=== PATIENT | female | born 1945 | race Asian ===

== ENCOUNTER 2020-07-17 23:10 | Observation (INO) | payer MEDICARE, OTHER ==
[~2020-07-17] VITALS: Ht 160 cm; Wt 63.8 kg
[2020-07-17 23:25] VITALS: BP 133/73
--- NOTE | 2020-07-17 23:49 | NUR ---
PT DIRECTLY ADMITTED TO 125 FOR SBHU 48HR HOLD. PT CALM AND COOPERATIVE DURING ADMISSION ASSESSMENT. PT WATCHING TV W/ CALL LIGHT IN REACH WILL CONTINUE TO MONITOR.
[2020-07-18 00:10] LABS: BILIRUBIN,URINE NEG (NEG); CLARITY,URINE HAZY; COLOR,URINE YELLOW; GLUCOSE,URINE NEG (NEG)
[2020-07-18 00:11] LABS: BACTERIA,URINE FEW /HPF (0-FEW); NITRITE,URINE POS (NEG); RBC,URINE 0 /HPF (0-2); SQUAMOUS EPITHELIAL CELL,UR OCC /LPF; UROBILINOGEN,URINE 0.2 mg/dL (0.2 mg/dL)
[2020-07-18] MEDS ORDERED: LISI20TA18 PO (01:16)
[2020-07-18] MEDS ORDERED: CHOL500021 PO (01:16)
[2020-07-18] MEDS ORDERED: ERYT30GE2 TP (01:16)
[2020-07-18] MEDS ORDERED: ASPI-630 PO (01:16)
[2020-07-18] MEDS ORDERED: PRAM3TAB PO (01:16)
[2020-07-18] MEDS ORDERED: DICL100G18 TP (01:16)
[2020-07-18] MEDS ORDERED: CALC1CAP7 PO (01:16)
[2020-07-18] MEDS ORDERED: CARB1DRO20 EACHEYE (01:16)
[2020-07-18] MEDS ORDERED: RASA1TAB2 PO (01:16)
[2020-07-18] MEDS ORDERED: CARB1TAB44 PO (02:21)
[2020-07-18 06:09] LABS: BASO # 0.1 x10^3/uL (0.0-0.2); BASO % 1 % (0-3); EOS # 0.2 x10^3/uL (0.0-0.7); EOS % 4 % (0-3); HEMATOCRIT 39.6 % (36.0-47.0); HEMOGLOBIN 13.5 g/dL (12.0-15.5); LYMPH # 1.7 x10^3/uL (1.0-4.8); LYMPH % 29 % (24-48); MEAN CORPUSCULAR HEMOGLOBIN 33 pg (25-35); MEAN CORPUSCULAR HGB CONC 34 g/dL (31-37); MEAN CORPUSCULAR VOLUME 96 fL (79-100); MONO # 0.4 x10^3/uL (0.0-1.1); MONO % 7 % (0-9); NEUT # 3.6 x10^3uL (1.8-7.7); NEUT % 59 % (31-73); PLATELET COUNT 224 x10^3/uL (140-400); RED BLOOD COUNT 4.11 x10^6/uL (3.50-5.40); WHITE BLOOD COUNT 6.1 x10^3/uL (4.0-11.0)
[2020-07-18 06:23] LABS: ALBUMIN 3.6 g/dL (3.4-5.0); ALBUMIN/GLOBULIN RATIO 1.1 (1.0-1.7); CALCIUM 9.3 mg/dL (8.5-10.1); CREATININE 0.7 mg/dL (0.6-1.0); GFR 81.8; MAGNESIUM 2.3 mg/dL (1.8-2.4); POTASSIUM 4.8 mmol/L (3.5-5.1); TOTAL BILIRUBIN 0.3 mg/dL (0.2-1.0); TOTAL PROTEIN 6.8 g/dL (6.4-8.2)
[2020-07-18] MEDS ORDERED: ACETAMINOPHEN 325 MG TABLET PO ONE (11:15)
[2020-07-18 11:43] VITALS: BP 124/72
[2020-07-18 14:48] LABS: THYROID STIM HORMONE (TSH) 1.956 uIU/mL (0.358-3.740)
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
[2020-07-18 16:02] VITALS: BP 163/69
--- NOTE | 2020-07-18 17:36 | NUR ---
SHIFT NOTE Pt resting throughout day. Pt redirected throughout day as to why she is here and why she cannot go home yet. This RN spoke with on the phone and he explained that he wants her to be in a [facility] after she discharges from [facility]. All questions addressed over the phone. Home medications continued by Dr. Abarca. Will continue to monitor. CLINTON, RN
[2020-07-18] MEDS ORDERED: POLYVINYL ALCOHOL 1.4% OPHTH SOLUTION 15ML BOTTLE. OU PRN (17:45)
--- NOTE | 2020-07-18 18:41 | EKG ---
[address] [address] Test Date: 2020-07-18 Test Time: 05:11:03 Pat Name: EDYTA PICHARDO Department: Room: 125 A Gender: F Senior Planner: : [id number] Requested By: FERNANDO LEACH Order Number: [id number] Reading MD: Measurements Intervals [place] Rate: 63 P: 47 RI: 180 QRS: 34 QRSD: 74 T: 66 QT: 404 QTc: 416 Interpretive Statements SINUS RHYTHM NORMAL ECG RI6.01 No previous ECG available for comparison
[2020-07-18 19:05] VITALS: BP 158/66
[2020-07-18] MEDS ORDERED: ERYTHROMYCIN BASE TP SCH (21:00)
[2020-07-18] MEDS ORDERED: PRAMIPEXOLE 0.5 MG TABLET. PO SCH (21:00)
[2020-07-18] MEDS ORDERED: DICLOFENAC SODIUM 1% TOPICAL GEL 100GM TUBE. TP SCH (21:00)
[2020-07-18] MEDS ORDERED: ETHANOL TP SCH (21:00)
[2020-07-18] MEDS ORDERED: CARBIDOPA/LEVODOPA CR 50/200MG TABLET.SA PO SCH (21:00)
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
[2020-07-18 23:00] VITALS: BP 129/69
[2020-07-18] MEDS ORDERED: ACETAMINOPHEN 325 MG TABLET PO PRN (23:00)
[2020-07-18 23:07] LABS: THYROXINE 5.8 ug/dL (4.5-12.0)
[2020-07-19 00:06] LABS: HEMOGLOBIN A1C 6.4 % (4.8-5.6)
[2020-07-19] MEDS ORDERED: CALCIUM CARB/VIT D3 500/200 TABLET PO SCH (08:00)
[2020-07-19] MEDS ORDERED: RASAGILINE MESYLATE PO SCH (09:00)
[2020-07-19] MEDS ORDERED: CHOLECALCIFEROL (VITAMIN D3) 1,000 UNIT TABLET PO SCH (09:00)
[2020-07-19] MEDS ORDERED: ASPIRIN CHEWABLE 81 MG TABLET. PO SCH (09:00)
[2020-07-19] MEDS ORDERED: LISINOPRIL 20 MG TABLET PO SCH (09:00)
== END 2020-07-19 00:32 ==
LOC: 1 SOUTH 23:10
PROVIDERS: ADMIT Hospitalist; ATTEND Hospitalist
DX: R45.1 Restlessness and agitation (principal); Z20.822 Contact with and (suspected) exposure to COVID-19; R45.6 Violent behavior; I10 Essential (primary) hypertension; E11.9 Type 2 diabetes mellitus without complications; G20 Parkinson's disease; F02.80 Dementia in other diseases classified elsewhere, unspecified severity, without behavioral disturbance, psychotic disturbance, mood disturbance, and anxiety; G43.909 Migraine, unspecified, not intractable, without status migrainosus; N39.0 Urinary tract infection, site not specified; Z90.49 Acquired absence of other specified parts of digestive tract; Z98.891 History of uterine scar from previous surgery
CPT/HCPCS: 36415; 80053; 80061; 81001; 82306; 82607; 82947; 83036; 83540; 83550; 83735; 84436; 84439; 84443; 84480; 84481; 85025; 85379; 86592; 87086; 93005; G0378; G0379; U0003

== ENCOUNTER 2020-07-18 21:00 | Inpatient (IN) | payer MEDICARE, OTHER ==
[~2020-07-18] VITALS: Ht 165.1 cm; Wt 63.9 kg
[~2020-07-18 21:00] MED LIST: ASPI-630 PO; CALC1CAP7 PO; CARB1DRO20 EACHEYE; CARB1TAB44 PO; CHOL500021 PO; DICL100G18 TP; ERYT30GE2 TP; LISI20TA18 PO; PRAM3TAB PO; RASA1TAB2 PO
[2020-07-19] MEDS ORDERED: METHYL SALICYLATE/MENTHOL TOPICAL OINTMENT 57GM TUBE. TP PRN (01:00)
[2020-07-19] MEDS ORDERED: MAG HYDROX/AL HYDROX/SIMETH 30 ML ORAL.SUSP PO PRN (01:00)
[2020-07-19] MEDS ORDERED: ACETAMINOPHEN 325 MG TABLET PO PRN (01:00)
[2020-07-19] MEDS ORDERED: MAGNESIUM HYDROXIDE 2,400 MG/30 ML ORAL.SUSP. PO PRN (01:00)
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
[2020-07-19 01:24] VITALS: BP 130/76
[2020-07-19 06:20] VITALS: BP 131/77
[2020-07-19] MEDS: RASAGILINE MESYLATE PO SCH (09:00)
[2020-07-19] MEDS ORDERED: CHOLECALCIFEROL (VITAMIN D3) 50,000 UNIT CAPSULE PO SCH (09:00)
[2020-07-19] MEDS: CARBIDOPA/LEVODOPA CR 50/200MG TABLET.SA PO SCH ×3 (09:23→20:18)
[2020-07-19] MEDS: ASPIRIN CHEWABLE 81 MG TABLET. PO SCH (09:23)
[2020-07-19] MEDS: PRAMIPEXOLE 0.5 MG TABLET. PO SCH ×3 (09:23→20:19)
[2020-07-19] MEDS: LISINOPRIL 20 MG TABLET PO SCH (09:23)
[2020-07-19] MEDS: CALCIUM CARB/VIT D3 500/200 TABLET PO SCH ×2 (09:23→16:24)
[2020-07-19] MEDS: DICLOFENAC SODIUM 1% TOPICAL GEL 100GM TUBE. TP SCH ×4 (09:24→20:19)
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
--- NOTE | 2020-07-19 12:28 | NUR ---
Jae has [facility] Medicare Advantage insurance. Call placed to Jose Raul at [facility] ([phone]) to inform of admission and obtain authorization. Jae has been approved thru 07/22/20, next review due on 07/23/20. Authorization number is [id number]. A [facility] clinician will contact Jaskaranajit's TANGELA SWBilly, to complete review on 07/23/20.
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
--- NOTE | 2020-07-19 15:53 | NUR ---
Nurse note Patient has had an uneventful shift, med compliant, but has been withdrawn to room except for meals.
[2020-07-19 16:03] VITALS: BP 132/78
--- NOTE | 2020-07-19 22:00 | PDOC ---
Exam Note: Jesus Note: Please also refer to the separate dictated note~for this date of service dictated separately.~Patient seen individually. Discussed the patient with Nursing staff reviewed the chart.~Reviewed interim history and current functioning. Reviewed vital signs,~Labs/ Radiology~and current medications noted below. Continue current treatment with the changes noted in the dictated addendum note Assessment: Vital Signs/I&O: Vital Signs Date Time Temp Pulse Resp B/P (MAP) Pulse Ox O2 Delivery O2 Flow Rate FiO2 07/19/20 16:03 97.9 73 16 132/78 (96) 97 07/19/20 06:20 Room Air 07/19/20 01:24 96.0 Current Medications: Meds: Current Medications Medications (Trade) Dose Ordered Sig/Sunday Route PRN Reason Start Time Stop Time Status Last Admin Dose Admin Aspirin (Aspirin Chewable) 81 mg DAILY PO 07/19/20 09:00 07/19/20 09:23 Carbidopa/Levodopa (Sinemet Cr) 1 tab.sa TID PO 07/19/20 09:00 07/19/20 20:18 Diclofenac Sodium (Voltaren) 1 petra QID TP 07/19/20 09:00 07/19/20 20:19 Lisinopril (Prinivil) 20 mg DAILY PO 07/19/20 09:00 07/19/20 09:23 Calcium/Vitamin D (Oscal D 500mg/ 200uts) 1 tab BIDWMEALS PO 07/19/20 08:00 07/19/20 16:24 Pramipexole Dihydrochloride (miraPEX) 1 mg [id number] PO 07/19/20 09:00 07/19/20 20:19 I have reviewed the current psychotropics carefully including drug interactions. Risk benefit ratio favors no change other than as noted in my dictated progress note. ANTONIO ARTHUR MD Jul 19, 2020 22:00
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
--- NOTE | 2020-07-20 00:40 | NUR ---
Nursing Note: Pt thinks she has been here for 3 days, and is repeatedly asking for a comb. Thinks she brought one with her, but her closet contains only 1 change of clothes and a small amount of makeup. Wanders the unit talking to peers, difficult to understand secondary to her thick accent. Pt compliant with meds and assessments.
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
[2020-07-20 06:15] VITALS: BP 139/68
[2020-07-20] MEDS: CHOLECALCIFEROL (VITAMIN D3) 1,000 UNIT TABLET PO SCH (08:10)
[2020-07-20] MEDS: CARBIDOPA/LEVODOPA CR 50/200MG TABLET.SA PO SCH ×3 (08:10→19:48)
[2020-07-20] MEDS: ASPIRIN CHEWABLE 81 MG TABLET. PO SCH (08:11)
[2020-07-20] MEDS: LISINOPRIL 20 MG TABLET PO SCH (08:11)
[2020-07-20] MEDS: CALCIUM CARB/VIT D3 500/200 TABLET PO SCH ×2 (08:11→16:35)
[2020-07-20] MEDS: PRAMIPEXOLE 0.5 MG TABLET. PO SCH ×3 (08:11→19:48)
[2020-07-20] MEDS: DICLOFENAC SODIUM 1% TOPICAL GEL 100GM TUBE. TP SCH ×4 (08:11→19:48)
[2020-07-20] MEDS: RASAGILINE MESYLATE PO SCH (08:12)
--- NOTE | 2020-07-20 12:25 | NUR ---
ACTIVITY THERAPY ASSESSMENT completed based on notes, observation and interview. Pt ambulates with a three wheel walker. Pt was located in her room about the brush her teeth. AT introduced self and pt said that she was willing to answer questions. Pt was hyperverbal but pleasant during time of assessment. Pt talks in a quiet tone and can be hard to understand at times. AT asked pt what she likes to do and pt said she likes exercise, coloring, gardening, cooking and going to mormonism. Pt was able to recall facts and details. Pt became very hyperverbal and was hard to redirect at this time. Pt began to talk about her belongings like her ring and watch. AT explained that she will get these items when she leaves. Pt continued to talk about these items and remained hyperverbal. AT encouraged pt to come to group activities in the afternoon. Per notes pt is interacting well with peers and staff. Pt is repeatedly asking about a comb that she thinks she came with. Initial goal aimed to support socialization and engagement. Pt will participate in at least five individual or group Activity Therapy sessions per week.
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
[2020-07-20 15:58] VITALS: BP 140/64
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
--- NOTE | 2020-07-20 22:06 | PDOC ---
Exam Note: Jesus Note: Please also refer to the separate dictated note~for this date of service dictated separately.~Patient seen individually. Discussed the patient with Nursing staff reviewed the chart.~Reviewed interim history and current functioning. Reviewed vital signs,~Labs/ Radiology~and current medications noted below. Continue current treatment with the changes noted in the dictated addendum note Assessment: Vital Signs/I&O: Vital Signs Date Time Temp Pulse Resp B/P (MAP) Pulse Ox O2 Delivery O2 Flow Rate FiO2 07/20/20 15:58 97.0 83 18 140/64 (89) 96 07/19/20 06:20 Room Air 07/19/20 01:24 96.0 I & O 07/19/20 07/19/20 07/20/20 15:00 23:00 07:00 Intake Total 240 ml 480 ml Output Total 800 ml Balance 240 ml 480 ml -800 ml Labs: Laboratory Tests Test 07/20/20 07:52 07/20/20 11:59 07/20/20 17:09 Glucose (Fingerstick) 161 mg/dL (70-99) H 130 mg/dL (70-99) H 138 mg/dL (70-99) H Current Medications: Meds: Laboratory Tests Test 07/20/20 07:52 07/20/20 11:59 07/20/20 17:09 Glucose (Fingerstick) 161 mg/dL 130 mg/dL 138 mg/dL Current Medications Medications (Trade) Dose Ordered Sig/Sunday Route PRN Reason Start Time Stop Time Status Last Admin Dose Admin Acetaminophen (Tylenol) 650 mg PRN Q6HRS PRN PO MILD PAIN / TEMP > 100.3'F 07/19/20 01:00 Multi-Ingredient Ointment (Analgesic [employer]) 1 petra PRN QID PRN TP MUSCLE PAIN 07/19/20 01:00 Al Hydroxide/Mg Hydroxide (Mylanta Plus Xs) 15 ml PRN AFTMEALHC PRN PO DYSPEPSIA 07/19/20 01:00 Magnesium Hydroxide (Milk Of Magnesia) 2,400 mg PRN QHS PRN PO CONSTIPATION 07/19/20 01:00 Aspirin (Aspirin Chewable) 81 mg DAILY PO 07/19/20 09:00 07/20/20 08:11 Carbidopa/Levodopa (Sinemet Cr) 1 tab.sa TID PO 07/19/20 09:00 07/20/20 19:48 Vitamin D (Vitamin D3) 2,000 unit DAILY PO 07/19/20 09:00 07/19/20 11:57 DC Diclofenac Sodium (Voltaren) 1 petra QID TP 07/19/20 09:00 07/20/20 19:48 Lisinopril (Prinivil) 20 mg DAILY PO 07/19/20 09:00 07/20/20 08:11 Calcium/Vitamin D (Oscal D 500mg/ 200uts) 1 tab BIDWMEALS PO 07/19/20 08:00 07/20/20 16:35 Artificial Tears (Artificial Tears) 2 drop PRN Q2HR PRN OU DRY EYE 07/19/20 01:45 Pramipexole Dihydrochloride (miraPEX) 1 mg [id number] PO 07/19/20 09:00 07/20/20 19:48 Non-Formulary Medication (Rasagiline Mesylate (Azilect)) 1 tab DAILY PO 07/19/20 09:00 UNV Vitamin D (Vitamin D3) 2,000 unit DAILY PO 07/20/20 09:00 07/20/20 08:10 Duloxetine HCl (Cymbalta) 30 mg DAILY PO 07/21/20 09:00 Current Medications Medications (Trade) Dose Ordered Sig/Sunday Route PRN Reason Start Time Stop Time Status Last Admin Dose Admin Vitamin D (Vitamin D3) 2,000 unit DAILY PO 07/20/20 09:00 07/20/20 08:10 I have reviewed the current psychotropics carefully including drug interactions. Risk benefit ratio favors no change other than as noted in my dictated progress note. Diagnosis: Problems: (1) Major depressive disorder with psychotic features (2) Major neurocognitive disorder (3) Dementia in Alzheimer's disease with delusions (4) Dementia in Alzheimer's disease with depression (5) Dementia, vascular, with depression (6) Dementia, vascular, with delusions (7) Anxiety disorder, unspecified (8) Impulse control disorder, unspecified ANTONIO ARTHUR MD Jul 20, 2020 22:06
--- NOTE | 2020-07-20 22:35 | NUR ---
Nursing note Pt complains about not getting her shower when she wanted it, peers entering her room, taking her makeup etc. Pt more talkative this pm, Sami is interwoven with Lao, at times is difficult to understand. Voltaren gel applied to LE bilat. Leg bag to right calf with yellow urine, clear.
[2020-07-21 06:11] VITALS: BP 150/83
--- NOTE | 2020-07-21 06:38 | PDOC ---
Exam Note: Jesus Note: This note is a late entry for 07/20/2020 covers elements not covered in my initial note. Subjective: The patient was seen individually in the evening of 07/20/2020 with Chace WINKLER, discussed and reviewed the chart. She slept 5-1/2 hours previous night. The patient has been withdrawn, anxious, depressed. I met with her at length in her room. She is talking and quite hyperverbal about situation at home blaming her . I am unable to follow her partly because of her accent and secondarily because of some ongoing pressure of speech. Review of Systems: Ambulation impaired with walker. No CV, , pulmonary, eye, ENT system symptoms on review. Mental Status Exam: The patient is oriented to herself and situation. Speech is rapid, coherent, other than above. Abstraction fair. Computation impaired. Language function intact. Mood and affect remains depressed, anxious, somewhat suspicious. Laboratory Data: Reviewed. Impression: Major depressive disorder with psychotic features. Major neurocognitive disorder Alzheimer vascular with delusion, depression. Anxiety disorder unspecified. Impulse control disorder unspecified. Plan: We will go ahead and start Cymbalta 30 mg a day for her mood symptoms. Continue rest unchanged. Adjust further as clinically indicated. Assessment: Vital Signs/I&O: Vital Signs Date Time Temp Pulse Resp B/P (MAP) Pulse Ox O2 Delivery O2 Flow Rate FiO2 07/21/20 06:11 98.0 68 18 150/83 (105) 97 Room Air 07/19/20 01:24 96.0 I & O 07/20/20 07/20/20 07/21/20 15:00 23:00 07:00 Intake Total 600 ml 240 ml Balance 600 ml 240 ml Labs: Laboratory Tests Test 07/20/20 07:52 07/20/20 11:59 07/20/20 17:09 Glucose (Fingerstick) 161 mg/dL (70-99) H 130 mg/dL (70-99) H 138 mg/dL (70-99) H Current Medications: Meds: Laboratory Tests Test 07/20/20 07:52 07/20/20 11:59 07/20/20 17:09 Glucose (Fingerstick) 161 mg/dL 130 mg/dL 138 mg/dL Current Medications Medications (Trade) Dose Ordered Sig/Sunday Route PRN Reason Start Time Stop Time Status Last Admin Dose Admin Acetaminophen (Tylenol) 650 mg PRN Q6HRS PRN PO MILD PAIN / TEMP > 100.3'F 07/19/20 01:00 Multi-Ingredient Ointment (Analgesic [place]) 1 petra PRN QID PRN TP MUSCLE PAIN 07/19/20 01:00 Al Hydroxide/Mg Hydroxide (Mylanta Plus Xs) 15 ml PRN AFTMEALHC PRN PO DYSPEPSIA 07/19/20 01:00 Magnesium Hydroxide (Milk Of Magnesia) 2,400 mg PRN QHS PRN PO CONSTIPATION 07/19/20 01:00 Aspirin (Aspirin Chewable) 81 mg DAILY PO 07/19/20 09:00 07/20/20 08:11 Carbidopa/Levodopa (Sinemet Cr) 1 tab.sa TID PO 07/19/20 09:00 07/20/20 19:48 Vitamin D (Vitamin D3) 2,000 unit DAILY PO 07/19/20 09:00 07/19/20 11:57 DC Diclofenac Sodium (Voltaren) 1 petra QID TP 07/19/20 09:00 07/20/20 19:48 Lisinopril (Prinivil) 20 mg DAILY PO 07/19/20 09:00 07/20/20 08:11 Calcium/Vitamin D (Oscal D 500mg/ 200uts) 1 tab BIDWMEALS PO 07/19/20 08:00 07/20/20 16:35 Artificial Tears (Artificial Tears) 2 drop PRN Q2HR PRN OU DRY EYE 07/19/20 01:45 Pramipexole Dihydrochloride (miraPEX) 1 mg [id number] PO 07/19/20 09:00 07/20/20 19:48 Non-Formulary Medication (Rasagiline Mesylate (Azilect)) 1 tab DAILY PO 07/19/20 09:00 UNV Vitamin D (Vitamin D3) 2,000 unit DAILY PO 07/20/20 09:00 07/20/20 08:10 Duloxetine HCl (Cymbalta) 30 mg DAILY PO 07/21/20 09:00 Current Medications Medications (Trade) Dose Ordered Sig/Sunday Route PRN Reason Start Time Stop Time Status Last Admin Dose Admin Vitamin D (Vitamin D3) 2,000 unit DAILY PO 07/20/20 09:00 07/20/20 08:10 I have reviewed the current psychotropics carefully including drug interactions. Risk benefit ratio favors no change other than as noted in my dictated progress note. Diagnosis: Problems: (1) Impulse control disorder, unspecified (2) Anxiety disorder, unspecified (3) Dementia, vascular, with depression (4) Dementia, vascular, with delusions (5) Dementia in Alzheimer's disease with depression (6) Dementia in Alzheimer's disease with delusions (7) Major neurocognitive disorder (8) Major depressive disorder with psychotic features ANTONIO ARTHUR MD Jul 21, 2020 06:38
[2020-07-21] MEDS: CALCIUM CARB/VIT D3 500/200 TABLET PO SCH ×2 (08:00→16:10)
[2020-07-21] MEDS: CHOLECALCIFEROL (VITAMIN D3) 1,000 UNIT TABLET PO SCH (08:35)
[2020-07-21] MEDS: LISINOPRIL 20 MG TABLET PO SCH (08:35)
[2020-07-21] MEDS: DULoxetine HCL 30 MG CAPSULE.DR PO SCH (08:36)
[2020-07-21] MEDS: PRAMIPEXOLE 0.5 MG TABLET. PO SCH ×3 (08:36→18:29)
[2020-07-21] MEDS: ASPIRIN CHEWABLE 81 MG TABLET. PO SCH (08:36)
[2020-07-21] MEDS: CARBIDOPA/LEVODOPA CR 50/200MG TABLET.SA PO SCH ×3 (08:36→18:29)
[2020-07-21] MEDS: DICLOFENAC SODIUM 1% TOPICAL GEL 100GM TUBE. TP SCH ×4 (08:52→18:29)
[2020-07-21] MEDS: RASAGILINE MESYLATE PO SCH (08:52)
[2020-07-21 15:55] VITALS: BP 158/81
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
--- NOTE | 2020-07-21 22:00 | PDOC ---
Exam Note: Jesus Note: Please also refer to the separate dictated note~for this date of service dictated separately.~Patient seen individually. Discussed the patient with Nursing staff reviewed the chart.~Reviewed interim history and current functioning. Reviewed vital signs,~Labs/ Radiology~and current medications noted below. Continue current treatment with the changes noted in the dictated addendum note Assessment: Vital Signs/I&O: Vital Signs Date Time Temp Pulse Resp B/P (MAP) Pulse Ox O2 Delivery O2 Flow Rate FiO2 07/21/20 15:55 97.1 65 16 158/81 (106) 97 07/21/20 06:11 Room Air 07/19/20 01:24 96.0 I & O 07/20/20 07/20/20 07/21/20 15:00 23:00 07:00 Intake Total 600 ml 240 ml Balance 600 ml 240 ml Labs: Laboratory Tests Test 07/21/20 11:32 07/21/20 16:18 07/21/20 19:42 Glucose (Fingerstick) 145 mg/dL (70-99) H 156 mg/dL (70-99) H 176 mg/dL (70-99) H Current Medications: Meds: Laboratory Tests Test 07/21/20 11:32 07/21/20 16:18 07/21/20 19:42 Glucose (Fingerstick) 145 mg/dL 156 mg/dL 176 mg/dL Current Medications Medications (Trade) Dose Ordered Sig/Sunday Route PRN Reason Start Time Stop Time Status Last Admin Dose Admin Acetaminophen (Tylenol) 650 mg PRN Q6HRS PRN PO MILD PAIN / TEMP > 100.3'F 07/19/20 01:00 Multi-Ingredient Ointment (Analgesic [place]) 1 petra PRN QID PRN TP MUSCLE PAIN 07/19/20 01:00 Al Hydroxide/Mg Hydroxide (Mylanta Plus Xs) 15 ml PRN AFTMEALHC PRN PO DYSPEPSIA 07/19/20 01:00 Magnesium Hydroxide (Milk Of Magnesia) 2,400 mg PRN QHS PRN PO CONSTIPATION 07/19/20 01:00 Aspirin (Aspirin Chewable) 81 mg DAILY PO 07/19/20 09:00 07/21/20 08:36 Carbidopa/Levodopa (Sinemet Cr) 1 tab.sa TID PO 07/19/20 09:00 07/21/20 18:29 Vitamin D (Vitamin D3) 2,000 unit DAILY PO 07/19/20 09:00 07/19/20 11:57 DC Diclofenac Sodium (Voltaren) 1 petra QID TP 07/19/20 09:00 07/21/20 18:29 Lisinopril (Prinivil) 20 mg DAILY PO 07/19/20 09:00 07/21/20 08:35 Calcium/Vitamin D (Oscal D 500mg/ 200uts) 1 tab BIDWMEALS PO 07/19/20 08:00 07/21/20 16:10 Artificial Tears (Artificial Tears) 2 drop PRN Q2HR PRN OU DRY EYE 07/19/20 01:45 Pramipexole Dihydrochloride (miraPEX) 1 mg [id number] PO 07/19/20 09:00 07/21/20 18:29 Non-Formulary Medication (Rasagiline Mesylate (Azilect)) 1 tab DAILY PO 07/19/20 09:00 UNV Vitamin D (Vitamin D3) 2,000 unit DAILY PO 07/20/20 09:00 07/21/20 08:35 Duloxetine HCl (Cymbalta) 30 mg DAILY PO 07/21/20 09:00 07/21/20 08:36 Current Medications Medications (Trade) Dose Ordered Sig/Sunday Route PRN Reason Start Time Stop Time Status Last Admin Dose Admin Duloxetine HCl (Cymbalta) 30 mg DAILY PO 07/21/20 09:00 07/21/20 08:36 I have reviewed the current psychotropics carefully including drug interactions. Risk benefit ratio favors no change other than as noted in my dictated progress note. Diagnosis: Problems: (1) Impulse control disorder, unspecified (2) Anxiety disorder, unspecified (3) Dementia, vascular, with depression (4) Dementia, vascular, with delusions (5) Dementia in Alzheimer's disease with depression (6) Dementia in Alzheimer's disease with delusions (7) Major neurocognitive disorder (8) Major depressive disorder with psychotic features ANTONIO ARTHUR MD Jul 21, 2020 22:00
--- NOTE | 2020-07-22 05:29 | NUR ---
Pt struggles with communication in [place]. Her words are quiet and sometimes garbled. Suprapubic dressing changed this AM with slit gauze and tape. No signs of infection. Pt denies pain.
[2020-07-22 06:22] VITALS: BP 140/67
[2020-07-22] MEDS: PRAMIPEXOLE 0.5 MG TABLET. PO SCH ×3 (08:36→20:59)
[2020-07-22] MEDS: CALCIUM CARB/VIT D3 500/200 TABLET PO SCH ×2 (08:36→17:44)
[2020-07-22] MEDS: CARBIDOPA/LEVODOPA CR 50/200MG TABLET.SA PO SCH ×3 (08:36→20:59)
[2020-07-22] MEDS: DULoxetine HCL 30 MG CAPSULE.DR PO SCH (08:37)
[2020-07-22] MEDS: LISINOPRIL 20 MG TABLET PO SCH (08:37)
[2020-07-22] MEDS: ASPIRIN CHEWABLE 81 MG TABLET. PO SCH (08:37)
[2020-07-22] MEDS: CHOLECALCIFEROL (VITAMIN D3) 1,000 UNIT TABLET PO SCH (08:37)
[2020-07-22] MEDS: RASAGILINE MESYLATE PO SCH (09:00)
[2020-07-22] MEDS: DICLOFENAC SODIUM 1% TOPICAL GEL 100GM TUBE. TP SCH ×4 (09:00→21:00)
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
--- NOTE | 2020-07-22 15:23 | NUR ---
Nursing note: Client alert and oriented does have some confusion and a heavy accent at times it is difficult to understand patient. She was in dinning room for morning medications & assessment, took medication whole. She denies pain at this time. Reported that her catheter site can itch at time, denies any itching this shift. Client walks occasionally through joyce between day room, bedroom and dinning room. Continue with treatment plan. Client currently in her bedroom, will continue to monitor.
[2020-07-22 16:08] VITALS: BP 142/57
--- NOTE | 2020-07-22 22:09 | PDOC ---
Exam Note: Jesus Note: Please also refer to the separate dictated note~for this date of service dictated separately.~Patient seen individually. Discussed the patient with Nursing staff reviewed the chart.~Reviewed interim history and current functioning. Reviewed vital signs,~Labs/ Radiology~and current medications noted below. Continue current treatment with the changes noted in the dictated addendum note Assessment: Vital Signs/I&O: Vital Signs Date Time Temp Pulse Resp B/P (MAP) Pulse Ox O2 Delivery O2 Flow Rate FiO2 07/22/20 16:08 97.7 74 16 142/57 (85) 96 07/22/20 06:22 Room Air 07/19/20 01:24 96.0 I & O 07/21/20 07/21/20 07/22/20 15:00 23:00 07:00 Intake Total 480 ml 360 ml Output Total 450 ml Balance 480 ml -90 ml Labs: Laboratory Tests Test 07/22/20 07:31 07/22/20 11:28 07/22/20 16:44 07/22/20 19:05 Glucose (Fingerstick) 147 mg/dL (70-99) H 162 mg/dL (70-99) H 177 mg/dL (70-99) H 232 mg/dL (70-99) H Current Medications: Meds: Laboratory Tests Test 07/22/20 07:31 07/22/20 11:28 07/22/20 16:44 07/22/20 19:05 Glucose (Fingerstick) 147 mg/dL 162 mg/dL 177 mg/dL 232 mg/dL Current Medications Medications (Trade) Dose Ordered Sig/Sunday Route PRN Reason Start Time Stop Time Status Last Admin Dose Admin Acetaminophen (Tylenol) 650 mg PRN Q6HRS PRN PO MILD PAIN / TEMP > 100.3'F 07/19/20 01:00 Multi-Ingredient Ointment (Analgesic [place]) 1 petra PRN QID PRN TP MUSCLE PAIN 07/19/20 01:00 Al Hydroxide/Mg Hydroxide (Mylanta Plus Xs) 15 ml PRN AFTMEALHC PRN PO DYSPEPSIA 07/19/20 01:00 07/22/20 21:43 Magnesium Hydroxide (Milk Of Magnesia) 2,400 mg PRN QHS PRN PO CONSTIPATION 07/19/20 01:00 Aspirin (Aspirin Chewable) 81 mg DAILY PO 07/19/20 09:00 07/22/20 08:37 Carbidopa/Levodopa (Sinemet Cr) 1 tab.sa TID PO 07/19/20 09:00 07/22/20 20:59 Vitamin D (Vitamin D3) 2,000 unit DAILY PO 07/19/20 09:00 07/19/20 11:57 DC Diclofenac Sodium (Voltaren) 1 petra QID TP 07/19/20 09:00 07/22/20 21:00 Lisinopril (Prinivil) 20 mg DAILY PO 07/19/20 09:00 07/22/20 08:37 Calcium/Vitamin D (Oscal D 500mg/ 200uts) 1 tab BIDWMEALS PO 07/19/20 08:00 07/22/20 17:44 Artificial Tears (Artificial Tears) 2 drop PRN Q2HR PRN OU DRY EYE 07/19/20 01:45 Pramipexole Dihydrochloride (miraPEX) 1 mg [id number] PO 07/19/20 09:00 07/22/20 20:59 Non-Formulary Medication (Rasagiline Mesylate (Azilect)) 1 tab DAILY PO 07/19/20 09:00 UNV Vitamin D (Vitamin D3) 2,000 unit DAILY PO 07/20/20 09:00 07/22/20 08:37 Duloxetine HCl (Cymbalta) 30 mg DAILY PO 07/21/20 09:00 07/22/20 08:37 I have reviewed the current psychotropics carefully including drug interactions. Risk benefit ratio favors no change other than as noted in my dictated progress note. Diagnosis: Problems: (1) Impulse control disorder, unspecified (2) Anxiety disorder, unspecified (3) Dementia, vascular, with depression (4) Dementia, vascular, with delusions (5) Dementia in Alzheimer's disease with depression (6) Dementia in Alzheimer's disease with delusions (7) Major neurocognitive disorder (8) Major depressive disorder with psychotic features ANTONIO ARTHUR MD Jul 22, 2020 22:09
--- NOTE | 2020-07-22 23:39 | NUR ---
Patient is located in her room for assessments and medications. She is pleasant, confused. Difficult to understand at times due to accent. Compliant with assessments and medications whole. No agitation. Patient requested PRN for abdominal discomfort. Mylanta given at 2200, with good effect. She appears to be sleeping comfortably at present time. Will continue to monitor.
[2020-07-23 05:58] VITALS: BP 131/78
[2020-07-23] MEDS: ASPIRIN CHEWABLE 81 MG TABLET. PO SCH (08:41)
[2020-07-23] MEDS: CARBIDOPA/LEVODOPA CR 50/200MG TABLET.SA PO SCH ×3 (08:41→20:33)
[2020-07-23] MEDS: DICLOFENAC SODIUM 1% TOPICAL GEL 100GM TUBE. TP SCH ×4 (08:41→20:34)
[2020-07-23] MEDS: CALCIUM CARB/VIT D3 500/200 TABLET PO SCH ×2 (08:42→17:19)
[2020-07-23] MEDS: LISINOPRIL 20 MG TABLET PO SCH (08:42)
[2020-07-23] MEDS: PRAMIPEXOLE 0.5 MG TABLET. PO SCH ×3 (08:42→20:33)
[2020-07-23] MEDS: DULoxetine HCL 30 MG CAPSULE.DR PO SCH (08:42)
[2020-07-23] MEDS: CHOLECALCIFEROL (VITAMIN D3) 1,000 UNIT TABLET PO SCH (08:42)
[2020-07-23] MEDS: RASAGILINE MESYLATE PO SCH (08:47)
--- NOTE | 2020-07-23 09:35 | PDOC ---
Exam Note: Jesus Note: This note is a late entry for 07/22/2020 covers elements not covered in my initial note. Subjective: The patient was seen individually in the evening of 07/22/2020 with Megan WINKLER, discussed and reviewed the chart. She slept 7 hours previous night. I met with the patient in her room. She is compliant with medications. She remains withdrawn, difficult to understand at times due to her accent which is fairly thick [place]isian[place]. Review of Systems: Ambulation impaired with walker. No CV, , pulmonary, eye, ENT system symptoms on review. Mental Status Exam: The patient is oriented to herself and situation. Speech is coherent, rapid at times, less pressured. Abstraction fair. Computation impaired. Language function intact. Mood and affect lability improved, less depressed. No suicidal ideation. Laboratory Data: Reviewed. Impression: Major depressive disorder with psychotic features. Major neurocognitive disorder Alzheimer vascular with delusion, depression. Anxiety disorder unspecified. Impulse control disorder unspecified. Plan: Continue current psychotropics. Make further adjustments clinically indicated. We will request social service staff to have a marital session with the patient and her to assess functioning at home and aid in planning for disposition plans. Assessment: Vital Signs/I&O: Vital Signs Date Time Temp Pulse Resp B/P (MAP) Pulse Ox O2 Delivery O2 Flow Rate FiO2 07/23/20 08:42 62 131/78 07/23/20 05:58 97.6 16 99 Room Air 07/19/20 01:24 96.0 I & O 07/22/20 07/22/20 07/23/20 15:00 23:00 07:00 Intake Total 840 ml 240 ml Balance 840 ml 240 ml Labs: Laboratory Tests Test 07/22/20 11:28 07/22/20 16:44 07/22/20 19:05 07/23/20 07:21 Glucose (Fingerstick) 162 mg/dL (70-99) H 177 mg/dL (70-99) H 232 mg/dL (70-99) H 194 mg/dL (70-99) H Current Medications: Meds: Laboratory Tests Test 07/22/20 11:28 07/22/20 16:44 07/22/20 19:05 07/23/20 07:21 Glucose (Fingerstick) 162 mg/dL 177 mg/dL 232 mg/dL 194 mg/dL Current Medications Medications (Trade) Dose Ordered Sig/Sunday Route PRN Reason Start Time Stop Time Status Last Admin Dose Admin Acetaminophen (Tylenol) 650 mg PRN Q6HRS PRN PO MILD PAIN / TEMP > 100.3'F 07/19/20 01:00 Multi-Ingredient Ointment (Analgesic [place]) 1 petra PRN QID PRN TP MUSCLE PAIN 07/19/20 01:00 Al Hydroxide/Mg Hydroxide (Mylanta Plus Xs) 15 ml PRN AFTMEALHC PRN PO DYSPEPSIA 07/19/20 01:00 07/22/20 21:43 Magnesium Hydroxide (Milk Of Magnesia) 2,400 mg PRN QHS PRN PO CONSTIPATION 07/19/20 01:00 Aspirin (Aspirin Chewable) 81 mg DAILY PO 07/19/20 09:00 07/23/20 08:41 Carbidopa/Levodopa (Sinemet Cr) 1 tab.sa TID PO 07/19/20 09:00 07/23/20 08:41 Vitamin D (Vitamin D3) 2,000 unit DAILY PO 07/19/20 09:00 07/19/20 11:57 DC Diclofenac Sodium (Voltaren) 1 petra QID TP 07/19/20 09:00 07/23/20 08:41 Lisinopril (Prinivil) 20 mg DAILY PO 07/19/20 09:00 07/23/20 08:42 Calcium/Vitamin D (Oscal D 500mg/ 200uts) 1 tab BIDWMEALS PO 07/19/20 08:00 07/23/20 08:42 Artificial Tears (Artificial Tears) 2 drop PRN Q2HR PRN OU DRY EYE 07/19/20 01:45 Pramipexole Dihydrochloride (miraPEX) 1 mg [id number] PO 07/19/20 09:00 07/23/20 08:42 Non-Formulary Medication (Rasagiline Mesylate (Azilect)) 1 tab DAILY PO 07/19/20 09:00 UNV Vitamin D (Vitamin D3) 2,000 unit DAILY PO 07/20/20 09:00 07/23/20 08:42 Duloxetine HCl (Cymbalta) 30 mg DAILY PO 07/21/20 09:00 07/23/20 08:42 I have reviewed the current psychotropics carefully including drug interactions. Risk benefit ratio favors no change other than as noted in my dictated progress note. Diagnosis: Problems: (1) Impulse control disorder, unspecified (2) Anxiety disorder, unspecified (3) Dementia, vascular, with depression (4) Dementia, vascular, with delusions (5) Dementia in Alzheimer's disease with depression (6) Dementia in Alzheimer's disease with delusions (7) Major neurocognitive disorder (8) Major depressive disorder with psychotic features ANTONIO ARTHUR MD Jul 23, 2020 09:35
--- NOTE | 2020-07-23 10:55 | NUR ---
Nursing note: Client alert and oriented does have some confusion and a heavy accent at times it is difficult to understand patient. She was in dinning room for morning medications & assessment, took medication whole. She reports right side pain, unable to verbalize pain level on a scale of 1-10. Reported that her catheter site can itch at time, denies any itching this shift. Client walks occasionally through joyce between day room, bedroom and dinning room. Client currently in day room. Will continue to monitor.
--- NOTE | 2020-07-23 14:23 | NUR ---
SW completed [employer] updates on pt via voicemail and am waiting to hear back re: whether or not pt is going to be approved.
[2020-07-23 16:11] VITALS: BP 155/61
--- NOTE | 2020-07-23 22:06 | PDOC ---
Exam Note: Jesus Note: Please also refer to the separate dictated note~for this date of service dictated separately.~Patient seen individually. Discussed the patient with Nursing staff reviewed the chart.~Reviewed interim history and current functioning. Reviewed vital signs,~Labs/ Radiology~and current medications noted below. Continue current treatment with the changes noted in the dictated addendum note Assessment: Vital Signs/I&O: Vital Signs Date Time Temp Pulse Resp B/P (MAP) Pulse Ox O2 Delivery O2 Flow Rate FiO2 07/23/20 16:11 97.4 74 18 155/61 (92) 98 07/23/20 05:58 Room Air 07/19/20 01:24 96.0 I & O 07/22/20 07/22/20 07/23/20 15:00 23:00 07:00 Intake Total 840 ml 240 ml Balance 840 ml 240 ml Labs: Laboratory Tests Test 07/23/20 07:21 07/23/20 11:30 07/23/20 16:34 07/23/20 19:29 Glucose (Fingerstick) 194 mg/dL (70-99) H 118 mg/dL (70-99) H 180 mg/dL (70-99) H 194 mg/dL (70-99) H Current Medications: Meds: Laboratory Tests Test 07/23/20 07:21 07/23/20 11:30 07/23/20 16:34 07/23/20 19:29 Glucose (Fingerstick) 194 mg/dL 118 mg/dL 180 mg/dL 194 mg/dL Current Medications Medications (Trade) Dose Ordered Sig/Sunday Route PRN Reason Start Time Stop Time Status Last Admin Dose Admin Acetaminophen (Tylenol) 650 mg PRN Q6HRS PRN PO MILD PAIN / TEMP > 100.3'F 07/19/20 01:00 Multi-Ingredient Ointment (Analgesic [place]) 1 petra PRN QID PRN TP MUSCLE PAIN 07/19/20 01:00 Al Hydroxide/Mg Hydroxide (Mylanta Plus Xs) 15 ml PRN AFTMEALHC PRN PO DYSPEPSIA 07/19/20 01:00 07/22/20 21:43 Magnesium Hydroxide (Milk Of Magnesia) 2,400 mg PRN QHS PRN PO CONSTIPATION 07/19/20 01:00 Aspirin (Aspirin Chewable) 81 mg DAILY PO 07/19/20 09:00 07/23/20 08:41 Carbidopa/Levodopa (Sinemet Cr) 1 tab.sa TID PO 07/19/20 09:00 07/23/20 20:33 Vitamin D (Vitamin D3) 2,000 unit DAILY PO 07/19/20 09:00 07/19/20 11:57 DC Diclofenac Sodium (Voltaren) 1 petra QID TP 07/19/20 09:00 07/23/20 20:34 Lisinopril (Prinivil) 20 mg DAILY PO 07/19/20 09:00 07/23/20 08:42 Calcium/Vitamin D (Oscal D 500mg/ 200uts) 1 tab BIDWMEALS PO 07/19/20 08:00 07/23/20 17:19 Artificial Tears (Artificial Tears) 2 drop PRN Q2HR PRN OU DRY EYE 07/19/20 01:45 Pramipexole Dihydrochloride (miraPEX) 1 mg [id number] PO 07/19/20 09:00 07/23/20 20:33 Non-Formulary Medication (Rasagiline Mesylate (Azilect)) 1 tab DAILY PO 07/19/20 09:00 UNV Vitamin D (Vitamin D3) 2,000 unit DAILY PO 07/20/20 09:00 07/23/20 08:42 Duloxetine HCl (Cymbalta) 30 mg DAILY PO 07/21/20 09:00 07/26/20 21:00 07/23/20 08:42 Duloxetine HCl (Cymbalta) 60 mg DAILY PO 07/27/20 09:00 I have reviewed the current psychotropics carefully including drug interactions. Risk benefit ratio favors no change other than as noted in my dictated progress note. Diagnosis: Problems: (1) Impulse control disorder, unspecified (2) Anxiety disorder, unspecified (3) Dementia, vascular, with depression (4) Dementia, vascular, with delusions (5) Dementia in Alzheimer's disease with depression (6) Dementia in Alzheimer's disease with delusions (7) Major neurocognitive disorder (8) Major depressive disorder with psychotic features ANTONIO ARTHUR MD Jul 23, 2020 22:06
--- NOTE | 2020-07-23 23:34 | NUR ---
Patient was calm, cooperative and compliant with medications. She takes medications whole and without difficulty. Patient was initially in her bed laying down but was then noted to be in day room watching television later in the evening. Patient ambulates with a walker. Patient has an accent and is difficult to understand at times but is able to make her needs known. No adverse behaviors noted this shift.
[2020-07-24 06:24] VITALS: BP 149/78
[2020-07-24] MEDS: CALCIUM CARB/VIT D3 500/200 TABLET PO SCH ×2 (08:06→17:26)
[2020-07-24] MEDS: CHOLECALCIFEROL (VITAMIN D3) 1,000 UNIT TABLET PO SCH (08:06)
[2020-07-24] MEDS: CARBIDOPA/LEVODOPA CR 50/200MG TABLET.SA PO SCH ×3 (08:06→20:33)
[2020-07-24] MEDS: ASPIRIN CHEWABLE 81 MG TABLET. PO SCH (08:06)
[2020-07-24] MEDS: PRAMIPEXOLE 0.5 MG TABLET. PO SCH ×3 (08:06→20:33)
[2020-07-24] MEDS: LISINOPRIL 20 MG TABLET PO SCH (08:06)
[2020-07-24] MEDS: DULoxetine HCL 30 MG CAPSULE.DR PO SCH (08:06)
[2020-07-24] MEDS: DICLOFENAC SODIUM 1% TOPICAL GEL 100GM TUBE. TP SCH ×4 (08:07→20:34)
[2020-07-24] MEDS: RASAGILINE MESYLATE PO SCH (08:07)
--- NOTE | 2020-07-24 09:14 | PDOC ---
Exam Note: Jesus Note: This note is a late entry for 07/23/2020 covers elements not covered in my initial note. Subjective: The patient was seen individually in the evening of 07/23/2020 with Megan WINKLER, discussed and reviewed the chart. She slept 4-1/2 hours previous night. The patient has been somewhat withdrawn. She had some interaction with her but social service staff will address this to help with some marital conflicts they have had. Review of Systems: Ambulation impaired with walker. No CV, , pulmonary, eye, ENT system symptoms on review. Mental Status Exam: The patient is oriented to herself and situation. Speech is coherent, rapid at times. Abstraction fair. Computation impaired. Language function intact. Attention span short. Mood and affect somewhat withdrawn. Laboratory Data: Reviewed. Impression: Major depressive disorder with psychotic features. Major neurocognitive disorder Alzheimer vascular with delusion, depression. Anxiety disorder unspecified. Impulse control disorder unspecified. Plan: Continue current psychotropics. Increase Cymbalta from 30 mg a day to 50 mg a day. Rest unchanged for now. Assessment: Vital Signs/I&O: Vital Signs Date Time Temp Pulse Resp B/P (MAP) Pulse Ox O2 Delivery O2 Flow Rate FiO2 07/24/20 08:06 64 149/78 07/24/20 06:24 96.9 20 99 Room Air 07/19/20 01:24 96.0 I & O 07/23/20 07/23/20 07/24/20 15:00 23:00 07:00 Intake Total 720 ml 360 ml Balance 720 ml 360 ml Labs: Laboratory Tests Test 07/23/20 11:30 07/23/20 16:34 07/23/20 19:29 07/24/20 07:31 Glucose (Fingerstick) 118 mg/dL (70-99) H 180 mg/dL (70-99) H 194 mg/dL (70-99) H 158 mg/dL (70-99) H Current Medications: Meds: Laboratory Tests Test 07/23/20 11:30 07/23/20 16:34 07/23/20 19:29 07/24/20 07:31 Glucose (Fingerstick) 118 mg/dL 180 mg/dL 194 mg/dL 158 mg/dL Current Medications Medications (Trade) Dose Ordered Sig/Sunday Route PRN Reason Start Time Stop Time Status Last Admin Dose Admin Acetaminophen (Tylenol) 650 mg PRN Q6HRS PRN PO MILD PAIN / TEMP > 100.3'F 07/19/20 01:00 Multi-Ingredient Ointment (Analgesic [place]) 1 petra PRN QID PRN TP MUSCLE PAIN 07/19/20 01:00 Al Hydroxide/Mg Hydroxide (Mylanta Plus Xs) 15 ml PRN AFTMEALHC PRN PO DYSPEPSIA 07/19/20 01:00 07/22/20 21:43 Magnesium Hydroxide (Milk Of Magnesia) 2,400 mg PRN QHS PRN PO CONSTIPATION 07/19/20 01:00 Aspirin (Aspirin Chewable) 81 mg DAILY PO 07/19/20 09:00 07/24/20 08:06 Carbidopa/Levodopa (Sinemet Cr) 1 tab.sa TID PO 07/19/20 09:00 07/24/20 08:06 Vitamin D (Vitamin D3) 2,000 unit DAILY PO 07/19/20 09:00 07/19/20 11:57 DC Diclofenac Sodium (Voltaren) 1 petra QID TP 07/19/20 09:00 07/24/20 08:07 Lisinopril (Prinivil) 20 mg DAILY PO 07/19/20 09:00 07/24/20 08:06 Calcium/Vitamin D (Oscal D 500mg/ 200uts) 1 tab BIDWMEALS PO 07/19/20 08:00 07/24/20 08:06 Artificial Tears (Artificial Tears) 2 drop PRN Q2HR PRN OU DRY EYE 07/19/20 01:45 Pramipexole Dihydrochloride (miraPEX) 1 mg [id number] PO 07/19/20 09:00 07/24/20 08:06 Non-Formulary Medication (Rasagiline Mesylate (Azilect)) 1 tab DAILY PO 07/19/20 09:00 UNV Vitamin D (Vitamin D3) 2,000 unit DAILY PO 07/20/20 09:00 07/24/20 08:06 Duloxetine HCl (Cymbalta) 30 mg DAILY PO 07/21/20 09:00 07/26/20 21:00 07/24/20 08:06 Duloxetine HCl (Cymbalta) 60 mg DAILY PO 07/27/20 09:00 I have reviewed the current psychotropics carefully including drug interactions. Risk benefit ratio favors no change other than as noted in my dictated progress note. Diagnosis: Problems: (1) Impulse control disorder, unspecified (2) Anxiety disorder, unspecified (3) Dementia, vascular, with depression (4) Dementia, vascular, with delusions (5) Dementia in Alzheimer's disease with depression (6) Dementia in Alzheimer's disease with delusions (7) Major neurocognitive disorder (8) Major depressive disorder with psychotic features ANTONIO ARTHUR MD Jul 24, 2020 09:14
[2020-07-24 16:04] VITALS: BP 137/82
--- NOTE | 2020-07-24 18:14 | NUR ---
Pt alert and oriented no behaviors to report patient vitals wnl of baseline med compliant and cooperative with cares, good appetite in the dining room for all meals social with other patients and staff members, patient spoke with today and a visit is scheduled. Patient erma neckalace was given to Yaneth the mitigation supervisor and put into the safe. Dr Abarca and Dr Santiago rounded on patient no new orders vitals stable and wnl of baseline, will continue to monitor patient.
[2020-07-24] MEDS: POLYVINYL ALCOHOL 1.4% OPHTH SOLUTION 15ML BOTTLE. OU PRN (20:46)
--- NOTE | 2020-07-24 22:21 | NUR ---
Patient was in the day room watching tv with peers. Calm and cooperative with staff, compliant with meds. Patient requested PRN eye drops for dry eyes. Patient is quiet and withdrawn most of the time.
--- NOTE | 2020-07-24 22:22 | PDOC ---
Exam Note: Jesus Note: Please also refer to the separate dictated note~for this date of service dictated separately.~Patient seen individually. Discussed the patient with Nursing staff reviewed the chart.~Reviewed interim history and current functioning. Reviewed vital signs,~Labs/ Radiology~and current medications noted below. Continue current treatment with the changes noted in the dictated addendum note Assessment: Vital Signs/I&O: Vital Signs Date Time Temp Pulse Resp B/P (MAP) Pulse Ox O2 Delivery O2 Flow Rate FiO2 07/24/20 16:04 97.5 64 18 137/82 (100) 99 07/24/20 06:24 Room Air 07/19/20 01:24 96.0 I & O 07/23/20 07/23/20 07/24/20 15:00 23:00 07:00 Intake Total 720 ml 360 ml Balance 720 ml 360 ml Labs: Laboratory Tests Test 07/24/20 07:31 07/24/20 19:28 Glucose (Fingerstick) 158 mg/dL (70-99) H 222 mg/dL (70-99) H Current Medications: Meds: Laboratory Tests Test 07/24/20 07:31 07/24/20 19:28 Glucose (Fingerstick) 158 mg/dL 222 mg/dL Current Medications Medications (Trade) Dose Ordered Sig/Sunday Route PRN Reason Start Time Stop Time Status Last Admin Dose Admin Acetaminophen (Tylenol) 650 mg PRN Q6HRS PRN PO MILD PAIN / TEMP > 100.3'F 07/19/20 01:00 Multi-Ingredient Ointment (Analgesic [place]) 1 petra PRN QID PRN TP MUSCLE PAIN 07/19/20 01:00 Al Hydroxide/Mg Hydroxide (Mylanta Plus Xs) 15 ml PRN AFTMEALHC PRN PO DYSPEPSIA 07/19/20 01:00 07/22/20 21:43 Magnesium Hydroxide (Milk Of Magnesia) 2,400 mg PRN QHS PRN PO CONSTIPATION 07/19/20 01:00 Aspirin (Aspirin Chewable) 81 mg DAILY PO 07/19/20 09:00 07/24/20 08:06 Carbidopa/Levodopa (Sinemet Cr) 1 tab.sa TID PO 07/19/20 09:00 07/24/20 20:33 Vitamin D (Vitamin D3) 2,000 unit DAILY PO 07/19/20 09:00 07/19/20 11:57 DC Diclofenac Sodium (Voltaren) 1 petra QID TP 07/19/20 09:00 07/24/20 20:34 Lisinopril (Prinivil) 20 mg DAILY PO 07/19/20 09:00 07/24/20 08:06 Calcium/Vitamin D (Oscal D 500mg/ 200uts) 1 tab BIDWMEALS PO 07/19/20 08:00 07/24/20 17:26 Artificial Tears (Artificial Tears) 2 drop PRN Q2HR PRN OU DRY EYE 07/19/20 01:45 07/24/20 20:46 Pramipexole Dihydrochloride (miraPEX) 1 mg [id number] PO 07/19/20 09:00 07/24/20 20:33 Non-Formulary Medication (Rasagiline Mesylate (Azilect)) 1 tab DAILY PO 07/19/20 09:00 UNV Vitamin D (Vitamin D3) 2,000 unit DAILY PO 07/20/20 09:00 07/24/20 08:06 Duloxetine HCl (Cymbalta) 30 mg DAILY PO 07/21/20 09:00 07/26/20 21:00 07/24/20 08:06 Duloxetine HCl (Cymbalta) 60 mg DAILY PO 07/27/20 09:00 I have reviewed the current psychotropics carefully including drug interactions. Risk benefit ratio favors no change other than as noted in my dictated progress note. Diagnosis: Problems: (1) Impulse control disorder, unspecified (2) Anxiety disorder, unspecified (3) Dementia, vascular, with depression (4) Dementia, vascular, with delusions (5) Dementia in Alzheimer's disease with depression (6) Dementia in Alzheimer's disease with delusions (7) Major neurocognitive disorder (8) Major depressive disorder with psychotic features ANTONIO ARTHUR MD Jul 24, 2020 22:22
[2020-07-25 06:34] VITALS: BP 145/76
--- NOTE | 2020-07-25 06:50 | PDOC ---
Exam Note: Jesus Note: This note is a late entry for 07/24/2020 covers elements not covered in my initial note. Subjective: The patient was seen individually in the evening of 07/24/2020 with Chace WINKLER, discussed and reviewed the chart. She slept 5-1/4 hours previous night. The patient has been somewhat isolative in her room, does come out to the dayroom. She has talked about constant conflicts with her . He will be visiting tomorrow. We will defer to social service staff to have a meeting with the two of them to address the above. Much of this will have to be address ed as an outpatient however. Review of Systems: Ambulation impaired with walker. No CV, , pulmonary, eye, ENT system symptoms on review. Mental Status Exam: The patient is oriented to herself and situation. Speech is coherent, difficult to understand at times. Abstraction fair. Computation impaired. Language function intact. Attention span short. Mood and affect remains somewhat depressed, anxious, slightly paranoid. Laboratory Data: Reviewed. Impression: Major depressive disorder with psychotic features. Major neurocognitive disorder Alzheimer vascular with delusion, depression. Anxiety disorder unspecified. Impulse control disorder unspecified. Plan: No change from initial note. We have initiated Cymbalta increased to 50 mg a day on 07/26. Rest unchanged for now. Assessment: Vital Signs/I&O: Vital Signs Date Time Temp Pulse Resp B/P (MAP) Pulse Ox O2 Delivery O2 Flow Rate FiO2 07/25/20 06:34 97.8 61 18 145/76 (99) 98 Room Air I & O 07/24/20 07/24/20 07/25/20 15:00 23:00 07:00 Intake Total 720 ml 480 ml Balance 720 ml 480 ml Labs: Laboratory Tests Test 07/24/20 07:31 07/24/20 19:28 Glucose (Fingerstick) 158 mg/dL (70-99) H 222 mg/dL (70-99) H Current Medications: Meds: Laboratory Tests Test 07/24/20 07:31 07/24/20 19:28 Glucose (Fingerstick) 158 mg/dL 222 mg/dL Current Medications Medications (Trade) Dose Ordered Sig/Sunday Route PRN Reason Start Time Stop Time Status Last Admin Dose Admin Acetaminophen (Tylenol) 650 mg PRN Q6HRS PRN PO MILD PAIN / TEMP > 100.3'F 07/19/20 01:00 Multi-Ingredient Ointment (Analgesic [place]) 1 petra PRN QID PRN TP MUSCLE PAIN 07/19/20 01:00 Al Hydroxide/Mg Hydroxide (Mylanta Plus Xs) 15 ml PRN AFTMEALHC PRN PO DYSPEPSIA 07/19/20 01:00 07/22/20 21:43 Magnesium Hydroxide (Milk Of Magnesia) 2,400 mg PRN QHS PRN PO CONSTIPATION 07/19/20 01:00 Aspirin (Aspirin Chewable) 81 mg DAILY PO 07/19/20 09:00 07/24/20 08:06 Carbidopa/Levodopa (Sinemet Cr) 1 tab.sa TID PO 07/19/20 09:00 07/24/20 20:33 Vitamin D (Vitamin D3) 2,000 unit DAILY PO 07/19/20 09:00 07/19/20 11:57 DC Diclofenac Sodium (Voltaren) 1 petra QID TP 07/19/20 09:00 07/24/20 20:34 Lisinopril (Prinivil) 20 mg DAILY PO 07/19/20 09:00 07/24/20 08:06 Calcium/Vitamin D (Oscal D 500mg/ 200uts) 1 tab BIDWMEALS PO 07/19/20 08:00 07/24/20 17:26 Artificial Tears (Artificial Tears) 2 drop PRN Q2HR PRN OU DRY EYE 07/19/20 01:45 07/24/20 20:46 Pramipexole Dihydrochloride (miraPEX) 1 mg [id number] PO 07/19/20 09:00 07/24/20 20:33 Non-Formulary Medication (Rasagiline Mesylate (Azilect)) 1 tab DAILY PO 07/19/20 09:00 UNV Vitamin D (Vitamin D3) 2,000 unit DAILY PO 07/20/20 09:00 07/24/20 08:06 Duloxetine HCl (Cymbalta) 30 mg DAILY PO 07/21/20 09:00 07/26/20 21:00 07/24/20 08:06 Duloxetine HCl (Cymbalta) 60 mg DAILY PO 07/27/20 09:00 I have reviewed the current psychotropics carefully including drug interactions. Risk benefit ratio favors no change other than as noted in my dictated progress note. Diagnosis: Problems: (1) Impulse control disorder, unspecified (2) Anxiety disorder, unspecified (3) Dementia, vascular, with depression (4) Dementia, vascular, with delusions (5) Dementia in Alzheimer's disease with depression (6) Dementia in Alzheimer's disease with delusions (7) Major neurocognitive disorder (8) Major depressive disorder with psychotic features ANTONIO ARTHUR MD Jul 25, 2020 06:50
[2020-07-25 07:34] LABS: BASO % 1 % (0-3); EOS # 0.1 x10^3/uL (0.0-0.7); EOS % 2 % (0-3); HEMATOCRIT 37.6 % (36.0-47.0); HEMOGLOBIN 12.9 g/dL (12.0-15.5); LYMPH # 1.5 x10^3/uL (1.0-4.8); LYMPH % 31 % (24-48); MEAN CORPUSCULAR HEMOGLOBIN 33 pg (25-35); MEAN CORPUSCULAR HGB CONC 34 g/dL (31-37); MEAN CORPUSCULAR VOLUME 95 fL (79-100); MONO # 0.3 x10^3/uL (0.0-1.1); MONO % 6 % (0-9); NEUT # 2.9 x10^3uL (1.8-7.7); NEUT % 60 % (31-73); PLATELET COUNT 231 x10^3/uL (140-400); RED BLOOD COUNT 3.95 x10^6/uL (3.50-5.40); RED CELL DISTRIBUTION WIDTH 12.8 % (11.5-14.5); WHITE BLOOD COUNT 4.9 x10^3/uL (4.0-11.0)
[2020-07-25 07:39] LABS: ALBUMIN 3.3 g/dL (3.4-5.0); ALBUMIN/GLOBULIN RATIO 1.1 (1.0-1.7); CREATININE 0.6 mg/dL (0.6-1.0); GFR 97.7; POTASSIUM 4.3 mmol/L (3.5-5.1); TOTAL BILIRUBIN 0.4 mg/dL (0.2-1.0); TOTAL PROTEIN 6.4 g/dL (6.4-8.2)
[2020-07-25] MEDS: ASPIRIN CHEWABLE 81 MG TABLET. PO SCH (08:13)
[2020-07-25] MEDS: CALCIUM CARB/VIT D3 500/200 TABLET PO SCH ×2 (08:13→16:15)
[2020-07-25] MEDS: PRAMIPEXOLE 0.5 MG TABLET. PO SCH ×3 (08:14→19:45)
[2020-07-25] MEDS: DULoxetine HCL 30 MG CAPSULE.DR PO SCH (08:14)
[2020-07-25] MEDS: CHOLECALCIFEROL (VITAMIN D3) 1,000 UNIT TABLET PO SCH (08:14)
[2020-07-25] MEDS: LISINOPRIL 20 MG TABLET PO SCH (08:14)
[2020-07-25] MEDS: CARBIDOPA/LEVODOPA CR 50/200MG TABLET.SA PO SCH ×3 (08:14→19:45)
[2020-07-25] MEDS: DICLOFENAC SODIUM 1% TOPICAL GEL 100GM TUBE. TP SCH ×4 (08:15→19:45)
[2020-07-25] MEDS: RASAGILINE MESYLATE PO SCH (08:17)
[2020-07-25] MEDS ORDERED: CHOL10004 PO (15:38)
[2020-07-25] MEDS ORDERED: DULO30CA2 PO (15:39)
[2020-07-25] MEDS ORDERED: DULO60CA6 PO (15:41)
[2020-07-25 15:59] VITALS: BP 127/69
--- NOTE | 2020-07-25 16:12 | NUR ---
[facility] Social Work Discharge Planning Form Patient Name EDYTA PICHARDO Admit Date: 19 July 2020 DISCHARGE PLAN Discharge Destination: Pt to discharge home with Care Assessment: N/A Level II Assessment: N/A Transportation: Pt is picking pt up as insurance has denied further stay Special Instructions/Notes: Please fax discharge orders, discharge medications and discharge summary to the fax numbers listed below. DISCHARGE TO HOME: Address: [address] [place] [address]; [place] [address] Responsible Democrat: Jose F Elbert Pharmacy: [facility] Contact Information: [address]; [place] [address] Must have physical scripts to be filled. Psychiatrist/Mental Health Services: Georgina Leong Contact Information: [address]; [place] [address] Appointment: August 03 @ 3:40PM Will be assigning a Reverse Unit Operator Fisherman to aid in helping with Medicaid and potential placement Home Health: [facility] Contact Information: [address], [address]; [place] [address] Appointment: Will meet with pt within 48 hours of discharge provides a psych nurse, PT, OT and Home Health Aide
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
--- NOTE | 2020-07-25 18:21 | NUR ---
Transition Record was faxed to follow-up provider with the following elements: Reason for admission, procedures, tests, principal diagnosis, pending studies, patient instructions, 08/09 contact information for unit, phone number to obtain pending test results, plan for follow-up care, physician follow-up, advanced directive information, and medication list with dose, duration and instructions. This information was included in the following documents: History and physical, lab results, study results, progress notes, social work planning form, DC instruction form, patient visit summary, and medication reconciliation form. Date & time record faxed:n/a will be given to transportation project manager patient is going home with spouse. Record faxed to:n/a will be given to transportation project manager patient is going home with spouse. Record discussed with/ report given to: Patient in person at 1630
[2020-07-25] MEDS: POLYVINYL ALCOHOL 1.4% OPHTH SOLUTION 15ML BOTTLE. OU PRN (19:45)
--- NOTE | 2020-07-25 20:24 | NUR ---
Patient picked up by patricio at 2014, This nurse walked patient to transportation.
--- NOTE | 2020-07-25 22:11 | PDOC ---
Exam Note: Jesus Note: Please also refer to the separate dictated note~for this date of service dictated separately.~Patient seen individually. Discussed the patient with Nursing staff reviewed the chart.~Reviewed interim history and current functioning. Reviewed vital signs,~Labs/ Radiology~and current medications noted below. Continue current treatment with the changes noted in the dictated addendum note Assessment: Vital Signs/I&O: Vital Signs Date Time Temp Pulse Resp B/P (MAP) Pulse Ox O2 Delivery O2 Flow Rate FiO2 07/25/20 15:59 97.0 67 16 127/69 (88) 99 07/25/20 06:34 Room Air I & O 07/24/20 07/24/20 07/25/20 15:00 23:00 07:00 Intake Total 720 ml 480 ml Balance 720 ml 480 ml Labs: Laboratory Tests Test 07/25/20 06:37 07/25/20 07:29 White Blood Count 4.9 x10^3/uL (4.0-11.0) Red Blood Count 3.95 x10^6/uL (3.50-5.40) Hemoglobin 12.9 g/dL (12.0-15.5) Hematocrit 37.6 % (36.0-47.0) Mean Corpuscular Volume 95 fL (79-100) Mean Corpuscular Hemoglobin 33 pg (25-35) Mean Corpuscular Hemoglobin Concent 34 g/dL (31-37) Red Cell Distribution Width 12.8 % (11.5-14.5) Platelet Count 231 x10^3/uL (140-400) Neutrophils (%) (Auto) 60 % (31-73) Lymphocytes (%) (Auto) 31 % (24-48) Monocytes (%) (Auto) 6 % (0-9) Eosinophils (%) (Auto) 2 % (0-3) Basophils (%) (Auto) 1 % (0-3) Neutrophils # (Auto) 2.9 x10^3uL (1.8-7.7) Lymphocytes # (Auto) 1.5 x10^3/uL (1.0-4.8) Monocytes # (Auto) 0.3 x10^3/uL (0.0-1.1) Eosinophils # (Auto) 0.1 x10^3/uL (0.0-0.7) Basophils # (Auto) 0.0 x10^3/uL (0.0-0.2) Sodium Level 140 mmol/L (136-145) Potassium Level 4.3 mmol/L (3.5-5.1) Chloride Level 103 mmol/L (98-107) Carbon Dioxide Level 30 mmol/L (21-32) Anion Gap 7 (6-14) Blood Urea Nitrogen 12 mg/dL (7-20) Creatinine 0.6 mg/dL (0.6-1.0) Estimated GFR (Cockcroft-Gault) 97.7 BUN/Creatinine Ratio 20 (6-20) Glucose Level 154 mg/dL (70-99) H Calcium Level 9.0 mg/dL (8.5-10.1) Total Bilirubin 0.4 mg/dL (0.2-1.0) Aspartate Amino Transferase (AST) 9 U/L (15-37) L Alanine Aminotransferase (ALT) 14 U/L (14-59) Alkaline Phosphatase 78 U/L (46-116) Total Protein 6.4 g/dL (6.4-8.2) Albumin 3.3 g/dL (3.4-5.0) L Albumin/Globulin Ratio 1.1 (1.0-1.7) Glucose (Fingerstick) 162 mg/dL (70-99) H Current Medications: Meds: Laboratory Tests Test 07/25/20 06:37 07/25/20 07:29 White Blood Count 4.9 x10^3/uL Red Blood Count 3.95 x10^6/uL Hemoglobin 12.9 g/dL Hematocrit 37.6 % Mean Corpuscular Volume 95 fL Mean Corpuscular Hemoglobin 33 pg Mean Corpuscular Hemoglobin Concent 34 g/dL Red Cell Distribution Width 12.8 % Platelet Count 231 x10^3/uL Neutrophils (%) (Auto) 60 % Lymphocytes (%) (Auto) 31 % Monocytes (%) (Auto) 6 % Eosinophils (%) (Auto) 2 % Basophils (%) (Auto) 1 % Neutrophils # (Auto) 2.9 x10^3uL Lymphocytes # (Auto) 1.5 x10^3/uL Monocytes # (Auto) 0.3 x10^3/uL Eosinophils # (Auto) 0.1 x10^3/uL Basophils # (Auto) 0.0 x10^3/uL Sodium Level 140 mmol/L Potassium Level 4.3 mmol/L Chloride Level 103 mmol/L Carbon Dioxide Level 30 mmol/L Anion Gap 7 Blood Urea Nitrogen 12 mg/dL Creatinine 0.6 mg/dL Estimated GFR (Cockcroft-Gault) 97.7 BUN/Creatinine Ratio 20 Glucose Level 154 mg/dL Calcium Level 9.0 mg/dL Total Bilirubin 0.4 mg/dL Aspartate Amino Transf (AST/SGOT) 9 U/L Alanine Aminotransferase (ALT/SGPT) 14 U/L Alkaline Phosphatase 78 U/L Total Protein 6.4 g/dL Albumin 3.3 g/dL Albumin/Globulin Ratio 1.1 Glucose (Fingerstick) 162 mg/dL Current Medications Medications (Trade) Dose Ordered Sig/Sunday Route PRN Reason Start Time Stop Time Status Last Admin Dose Admin Acetaminophen (Tylenol) 650 mg PRN Q6HRS PRN PO MILD PAIN / TEMP > 100.3'F 07/19/20 01:00 07/25/20 20:29 DC Multi-Ingredient Ointment (Analgesic [place]) 1 petra PRN QID PRN TP MUSCLE PAIN 07/19/20 01:00 07/25/20 20:29 DC Al Hydroxide/Mg Hydroxide (Mylanta Plus Xs) 15 ml PRN AFTMEALHC PRN PO DYSPEPSIA 07/19/20 01:00 07/25/20 20:29 DC 07/22/20 21:43 Magnesium Hydroxide (Milk Of Magnesia) 2,400 mg PRN QHS PRN PO CONSTIPATION 07/19/20 01:00 07/25/20 20:29 DC Aspirin (Aspirin Chewable) 81 mg DAILY PO 07/19/20 09:00 07/25/20 20:29 DC 07/25/20 08:13 Carbidopa/Levodopa (Sinemet Cr) 1 tab.sa TID PO 07/19/20 09:00 07/25/20 20:29 DC 07/25/20 19:45 Vitamin D (Vitamin D3) 2,000 unit DAILY PO 07/19/20 09:00 07/19/20 11:57 DC Diclofenac Sodium (Voltaren) 1 petra QID TP 07/19/20 09:00 07/25/20 20:29 DC 07/25/20 19:45 Lisinopril (Prinivil) 20 mg DAILY PO 07/19/20 09:00 07/25/20 20:29 DC 07/25/20 08:14 Calcium/Vitamin D (Oscal D 500mg/ 200uts) 1 tab BIDWMEALS PO 07/19/20 08:00 07/25/20 20:29 DC 07/25/20 16:15 Artificial Tears (Artificial Tears) 2 drop PRN Q2HR PRN OU DRY EYE 07/19/20 01:45 07/25/20 20:29 DC 07/25/20 19:45 Pramipexole Dihydrochloride (miraPEX) 1 mg [id number] PO 07/19/20 09:00 07/25/20 20:29 DC 07/25/20 19:45 Non-Formulary Medication (Rasagiline Mesylate (Azilect)) 1 tab DAILY PO 07/19/20 09:00 07/25/20 20:29 DC Vitamin D (Vitamin D3) 2,000 unit DAILY PO 07/20/20 09:00 07/25/20 20:29 DC 07/25/20 08:14 Duloxetine HCl (Cymbalta) 30 mg DAILY PO 07/21/20 09:00 07/25/20 20:29 DC 07/25/20 08:14 Duloxetine HCl (Cymbalta) 60 mg DAILY PO 07/27/20 09:00 07/25/20 20:29 DC I have reviewed the current psychotropics carefully including drug interactions. Risk benefit ratio favors no change other than as noted in my dictated progress note. Diagnosis: Problems: (1) Impulse control disorder, unspecified (2) Anxiety disorder, unspecified (3) Dementia, vascular, with depression (4) Dementia, vascular, with delusions (5) Dementia in Alzheimer's disease with depression (6) Dementia in Alzheimer's disease with delusions (7) Major neurocognitive disorder (8) Major depressive disorder with psychotic features ANTONIO ARTHUR MD Jul 25, 2020 22:11
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
[2020-07-27] MEDS ORDERED: DULoxetine HCL 30 MG CAPSULE.DR PO SCH (09:00)
== END 2020-07-25 20:15 | disposition home or self-care (01) | DRG 885 ==
LOC: GEROPSY 21:00
PROVIDERS: ADMIT Psychiatry & Neurology Psychiatry; ATTEND Psychiatry & Neurology Psychiatry
DX: F33.3 Major depressive disorder, recurrent, severe with psychotic symptoms (principal); F01.50 Vascular dementia, unspecified severity, without behavioral disturbance, psychotic disturbance, mood disturbance, and anxiety; I10 Essential (primary) hypertension; E11.9 Type 2 diabetes mellitus without complications; G20 Parkinson's disease; Z20.822 Contact with and (suspected) exposure to COVID-19; F02.80 Dementia in other diseases classified elsewhere, unspecified severity, without behavioral disturbance, psychotic disturbance, mood disturbance, and anxiety; F41.9 Anxiety disorder, unspecified; F63.9 Impulse disorder, unspecified; G30.9 Alzheimer's disease, unspecified
CPT/HCPCS: 36415; 80053; 82947; 85025; 97530